=== PATIENT | male | born 1945 | race Two or more races ===

== ENCOUNTER 2024-01-04 07:26 | Inpatient (IN) | payer MEDICARE, OTHER ==
[~2024-01-04] VITALS: Ht 170.2 cm; Wt 72.1 kg
[2024-01-04] MEDS ORDERED: LIDOCAINE 2%-EPI 1:100,000 30 ML VIAL ONE (09:13)
[2024-01-04] MEDS ORDERED: dexaMETHasone SOD PHOSPHATE 2 ML ONE (09:14)
[2024-01-04] MEDS ORDERED: VANCOMYCIN 1 GM VIAL ONE (09:14)
[2024-01-04] MEDS ORDERED: ICOS1CAP PO (12:29)
[2024-01-04] MEDS ORDERED: ASPI-1420 PO (12:29)
[2024-01-04] MEDS ORDERED: ATOR80TA PO (12:29)
[2024-01-04] MEDS ORDERED: METO25TA20 PO (12:30)
[2024-01-04] MEDS ORDERED: TADA5TAB2 PO (12:30)
[2024-01-04] MEDS ORDERED: ERGO500093 PO (12:30)
[2024-01-04] MEDS ORDERED: ONDANSETRON HCL/PF 4 MG/2 ML VIAL IV PRN (13:00)
[2024-01-04] MEDS ORDERED: ACETAMINOPHEN 325 MG TABLET PO PRN (13:00)
[2024-01-04] MEDS ORDERED: HYDROMORPHONE 1 MG/1 ML DISP.SYRIN IV PRN (13:00)
[2024-01-04] MEDS: IV NS 0.9% 1,000 ML IV PRN (19:59)
[2024-01-04] MEDS: VANCOMYCIN 1 GM in IV D5W 250ml IV SCH (20:22)
[2024-01-04 20:27] VITALS: BP 100/56; TEMP 98.1; O2SAT 94
[2024-01-05 08:00] VITALS: BP 103/56; TEMP 97.9; O2SAT 98
== END 2024-01-05 11:07 | disposition home or self-care (01) | DRG 908 ==
LOC: DS 07:26 → MED 11:30
PROVIDERS: ADMIT Nurse Practitioner Acute Care; ATTEND Nurse Practitioner Acute Care
PROC: 0NSR04Z Reposition Maxilla with Internal Fixation Device, Open Approach (ICD-10-PCS; principal; 2024-01-04)
PROC: 0NBR0ZZ Excision of Maxilla, Open Approach (ICD-10-PCS; 2024-01-04)
PROC: 0NUR07Z Supplement Maxilla with Autologous Tissue Substitute, Open Approach (ICD-10-PCS; 2024-01-04)
PROC: 0WC40ZZ Extirpation of Matter from Upper Jaw, Open Approach (ICD-10-PCS; 2024-01-04)
DX: T86.831 Bone graft failure (principal); M87.9 Osteonecrosis, unspecified; S02.40CK Maxillary fracture, right side, subsequent encounter for fracture with nonunion; M27.2 Inflammatory conditions of jaws; X58.XXXD Exposure to other specified factors, subsequent encounter; Y83.2 Surgical operation with anastomosis, bypass or graft as the cause of abnormal reaction of the patient, or of later complication, without mention of misadventure at the time of the procedure; Z95.1 Presence of aortocoronary bypass graft; Y92.009 Unspecified place in unspecified non-institutional (private) residence as the place of occurrence of the external cause; D16.4 Benign neoplasm of bones of skull and face; I10 Essential (primary) hypertension; I25.10 Atherosclerotic heart disease of native coronary artery without angina pectoris; E78.5 Hyperlipidemia, unspecified; J32.9 Chronic sinusitis, unspecified
CPT/HCPCS: 88304-TC; 88311-TC; A4223; A4338; C1713; G0378; J0690; J1100; J2704; J3370; J3490; J7030; J7060